=== PATIENT | male | born 1950 | race Caucasian/White ===

== ENCOUNTER 2018-06-02 16:17 | Inpatient (IN) ==
[2018-06-02] MEDS ORDERED: CLINDAMYCIN INJ 900 MG in PREMIX 1 EACH IV STA (17:23)
[2018-06-02] MEDS ORDERED: methylPREDNISolone SOD SUC 125 MG/2 ML VIAL IV STA (17:23)
[2018-06-02] MEDS ORDERED: SULFAMETHOX/TRIMETHOPRIM 800-160 MG TABLET PO STA (17:25)
[2018-06-02 18:05] LABS: Basophils % 0.5 % (0.0-0.8); Eosinophils # 0.1 10*3/uL (0.0-0.87); Eosinophils % 1.7 % (0.00-10.9); Hematocrit 32.7 VOL% (42.0-52.0); Immature Granulocytes % 0.5 %; Immature Granulocytes Absolute 0.03 #; Lymphocytes # 0.7 10*3/uL (1.4-4.0); Lymphocytes % 11.6 % (21.2-54.2); Mean Corpuscular HGB Conc 33.6 GM/DL (32-36); Mean Corpuscular Hemoglobin 35 PG (27-34); Mean Corpuscular Volume 104.5 FL (87-102); Monocytes # 0.6 10*3/uL (0.11-0.8); Monocytes % 10.4 % (1.7-12.7); Neutrophils # 4.4 10*3/uL (1.4-7.4); Neutrophils % 75.3 % (38.7-73.9); Platelet Count 196 T/CUMM (130-400); Red Blood Count 3.13 MC/CUMM (3.8-5.5); Red Cell Distribution Width 13.2 % (9.3-17.3); White Blood Count 5.9 T/CUMM (4-12)
[2018-06-02 18:28] LABS: Alanine Aminotransferase 23 U/L (16-61); Alkaline Phosphatase 83 U/L (45-117); Aspartate Amino Transferase 27 U/L (0-37); Bilirubin,Total < 0.39 MG/DL (0.2-1.0); Blood Urea Nitrogen 19 MG/DL (7-18); Calcium 8.8 MG/DL (8.5-10.1); Glucose 86 MG/DL (74-106); Potassium 5.4 MMOL/L (3.5-5.1); Sodium 136 MMOL/L (136-145); Total Protein 6.6 G/DL (6.4-8.3)
[2018-06-02 18:34] LABS: INR 0.9; PT Patient Result 9.5 SECS
[2018-06-02 19:23] LABS: Sedimentation Rate-Westergren 66 MM/HR (0-20)
[2018-06-02] MEDS ORDERED: ONDANSETRON 4 MG/2 ML VIAL IV PRN (19:33)
[2018-06-02] MEDS ORDERED: ACETAMINOPHEN 325 MG TABLET PO PRN (19:33)
[2018-06-02] MEDS ORDERED: PERMETHRIN 5% CREAM 60 GM TUBE TOP SCH (21:00)
[2018-06-02 21:05] LABS: Folate 7.5 NG/ML (5.4-24.0); Vitamin B12 > 2000 PG/ML (211-911)
[2018-06-02] MEDS: ENOXAPARIN 40 MG/0.4 ML SYRINGE SUBCUT SCH (21:48)
[2018-06-02] MEDS ORDERED: INFLUENZA VIRUS VACCINE 0.5 ML SYRINGE IM ONE (22:32)
[2018-06-03] MEDS: CLINDAMYCIN INJ 900 MG in PREMIX 1 EACH IV SCH ×3 (02:09→17:10)
[2018-06-03 06:28] LABS: Basophils % 0.3 % (0.0-0.8); Eosinophils % 0.3 % (0.00-10.9); Hematocrit 31.7 VOL% (42.0-52.0); Hemoglobin 10.4 GM/DL (14.0-18.0); Immature Granulocytes % 0.3 %; Immature Granulocytes Absolute 0.01 #; Lymphocytes # 0.6 10*3/uL (1.4-4.0); Lymphocytes % 14.7 % (21.2-54.2); Mean Corpuscular HGB Conc 32.8 GM/DL (32-36); Mean Corpuscular Hemoglobin 35 PG (27-34); Mean Corpuscular Volume 105.3 FL (87-102); Mean Platelet Volume 9.6 FL (9.6-12.0); Monocytes # 0.5 10*3/uL (0.11-0.8); Monocytes % 12.6 % (1.7-12.7); Neutrophils # 2.8 10*3/uL (1.4-7.4); Neutrophils % 71.8 % (38.7-73.9); Platelet Count 208 T/CUMM (130-400); Red Blood Count 3.01 MC/CUMM (3.8-5.5); Red Cell Distribution Width 13.2 % (9.3-17.3); White Blood Count 3.9 T/CUMM (4-12)
[2018-06-03 06:50] LABS: Calcium 8.5 MG/DL (8.5-10.1); Osmolality,Calculated 278.5 MOS/KG (273-304); Potassium 4.8 MMOL/L (3.5-5.1); Thyroid Stimulating Hormone 1.83 uIU/ml (0.358-3.74)
[2018-06-03] MEDS ORDERED: chlordiazePOXIDE 10 MG CAPSULE PO PRN (09:30)
[2018-06-03] MEDS ORDERED: MELATONIN 3 MG TABLET PO SCH (09:30)
[2018-06-03] MEDS: NICOTINE 14 MG/24 HR PATCH TRANSDERM SCH (09:59)
[2018-06-03] MEDS: THIAMINE 200 MG/2 ML VIAL IV SCH (09:59)
[2018-06-03] MEDS: POTASSIUM CHLORIDE 20 MEQ TABLET PO SCH (10:08)
[2018-06-03] MEDS: ASPIRIN EC 81 MG TABLET PO SCH (10:08)
[2018-06-03] MEDS: LISINOPRIL/HCTZ 20-12.5 MG TABLET PO SCH (10:08)
[2018-06-03] MEDS: OMEGA 3 ACID ETHYL ESTERS 1 GM CAPSULE PO SCH ×2 (10:08→20:46)
[2018-06-03] MEDS: MULTIVITAMIN (CENTRUM) TABLET PO SCH (10:08)
[2018-06-03] MEDS: amLODIPine 10 MG TABLET PO SCH (10:10)
[2018-06-03] MEDS ORDERED: SKIN HEALING OINT (AQUAPHOR) 50 GM TUBE TOP PRN (11:37)
[2018-06-03] MEDS: ENOXAPARIN 40 MG/0.4 ML SYRINGE SUBCUT SCH (20:45)
[2018-06-03] MEDS: SENNA 8.6 MG TABLET PO SCH (20:47)
[2018-06-03] MEDS: CYANOCOBALAMIN 500 MCG TABLET PO SCH (20:49)
[2018-06-03] MEDS ORDERED: DOCUSATE CALCIUM 240 MG CAPSULE PO SCH (21:00)
[2018-06-04] MEDS: CLINDAMYCIN INJ 900 MG in PREMIX 1 EACH IV SCH ×4 (02:02→18:02)
[2018-06-04 05:42] LABS: Basophils % 0.7 % (0.0-0.8); Eosinophils # 0.3 10*3/uL (0.0-0.87); Eosinophils % 7.3 % (0.00-10.9); Hematocrit 28.6 VOL% (42.0-52.0); Hemoglobin 9.3 GM/DL (14.0-18.0); Immature Granulocytes % 0.2 %; Immature Granulocytes Absolute 0.01 #; Lymphocytes # 0.9 10*3/uL (1.4-4.0); Lymphocytes % 21.1 % (21.2-54.2); Mean Corpuscular HGB Conc 32.5 GM/DL (32-36); Mean Corpuscular Hemoglobin 35 PG (27-34); Mean Corpuscular Volume 107.5 FL (87-102); Mean Platelet Volume 9.6 FL (9.6-12.0); Monocytes # 0.5 10*3/uL (0.11-0.8); Monocytes % 11.9 % (1.7-12.7); Neutrophils # 2.6 10*3/uL (1.4-7.4); Neutrophils % 58.8 % (38.7-73.9); Platelet Count 171 T/CUMM (130-400); Red Blood Count 2.66 MC/CUMM (3.8-5.5); Red Cell Distribution Width 13.1 % (9.3-17.3); White Blood Count 4.4 T/CUMM (4-12)
[2018-06-04 06:09] LABS: Calcium 8.1 MG/DL (8.5-10.1); Osmolality,Calculated 277.5 MOS/KG (273-304); Potassium 4.3 MMOL/L (3.5-5.1)
[2018-06-04] MEDS: THIAMINE 200 MG/2 ML VIAL IV SCH (08:38)
[2018-06-04] MEDS: NICOTINE 14 MG/24 HR PATCH TRANSDERM SCH (08:38)
[2018-06-04] MEDS: OMEGA 3 ACID ETHYL ESTERS 1 GM CAPSULE PO SCH ×2 (08:39→21:03)
[2018-06-04] MEDS: POTASSIUM CHLORIDE 20 MEQ TABLET PO SCH (08:39)
[2018-06-04] MEDS: LISINOPRIL/HCTZ 20-12.5 MG TABLET PO SCH (08:39)
[2018-06-04] MEDS: MULTIVITAMIN (CENTRUM) TABLET PO SCH (08:39)
[2018-06-04] MEDS: amLODIPine 10 MG TABLET PO SCH (08:39)
[2018-06-04] MEDS: ASPIRIN EC 81 MG TABLET PO SCH (08:39)
[2018-06-04] MEDS: PANTOPRAZOLE 40 MG TABLET PO SCH (10:39)
[2018-06-04] MEDS: CYANOCOBALAMIN 500 MCG TABLET PO SCH (21:03)
[2018-06-04] MEDS: SENNA 8.6 MG TABLET PO SCH (21:03)
[2018-06-04] MEDS: DOCUSATE SODIUM 100 MG CAPSULE PO SCH (21:03)
[2018-06-04] MEDS: ENOXAPARIN 40 MG/0.4 ML SYRINGE SUBCUT SCH (21:04)
[2018-06-05] MEDS: CLINDAMYCIN INJ 900 MG in PREMIX 1 EACH IV SCH ×4 (01:17→19:01)
[2018-06-05 05:29] LABS: Basophils % 0.2 % (0.0-0.8); Eosinophils # 0.3 10*3/uL (0.0-0.87); Eosinophils % 7.3 % (0.00-10.9); Hematocrit 29.9 VOL% (42.0-52.0); Hemoglobin 9.7 GM/DL (14.0-18.0); Immature Granulocytes % 0.2 %; Immature Granulocytes Absolute 0.01 #; Lymphocytes # 1.1 10*3/uL (1.4-4.0); Lymphocytes % 24.7 % (21.2-54.2); Mean Corpuscular HGB Conc 32.4 GM/DL (32-36); Mean Corpuscular Hemoglobin 34 PG (27-34); Mean Corpuscular Volume 104.9 FL (87-102); Mean Platelet Volume 9.3 FL (9.6-12.0); Monocytes # 0.5 10*3/uL (0.11-0.8); Monocytes % 10.7 % (1.7-12.7); Neutrophils # 2.6 10*3/uL (1.4-7.4); Neutrophils % 56.9 % (38.7-73.9); Platelet Count 156 T/CUMM (130-400); Red Blood Count 2.85 MC/CUMM (3.8-5.5); Red Cell Distribution Width 12.7 % (9.3-17.3); White Blood Count 4.5 T/CUMM (4-12)
[2018-06-05 05:53] LABS: Calcium 7.9 MG/DL (8.5-10.1); Osmolality,Calculated 276.5 MOS/KG (273-304); Potassium 3.9 MMOL/L (3.5-5.1)
[2018-06-05 05:55] LABS: Alanine Aminotransferase 19 U/L (16-61); Albumin 2.2 G/DL (3.4-5.0); Alkaline Phosphatase 54 U/L (45-117); Aspartate Amino Transferase 22 U/L (0-37); Bilirubin,Direct < 0.100 MG/DL (0.0-0.20); Bilirubin,Indirect 0.3 MG/DL (0.0-1.0); Bilirubin,Total < 0.39 MG/DL (0.2-1.0); Total Protein 5.2 G/DL (6.4-8.3)
[2018-06-05 07:58] LABS: Hepatitis A Ab IgM Quant 0.08 Index; Hepatitis A Ab IgM Result Negative (Negative); Hepatitis B Core IgM Quant < 0.05 Index; Hepatitis B Core IgM Result Negative (Negative); Hepatitis B Surface Ag Quant < 0.10 Index; Hepatitis B Surface Ag Result Negative (Negative); Hepatitis C Virus Ab Quant 0.06 Index; Hepatitis C Virus Ab Result Negative (Negative)
[2018-06-05] MEDS: NICOTINE 14 MG/24 HR PATCH TRANSDERM SCH (09:33)
[2018-06-05] MEDS: amLODIPine 10 MG TABLET PO SCH (09:34)
[2018-06-05] MEDS: MULTIVITAMIN (CENTRUM) TABLET PO SCH (09:34)
[2018-06-05] MEDS: PANTOPRAZOLE 40 MG TABLET PO SCH (09:34)
[2018-06-05] MEDS: LISINOPRIL/HCTZ 20-12.5 MG TABLET PO SCH (09:34)
[2018-06-05] MEDS: THIAMINE 200 MG/2 ML VIAL IV SCH (09:34)
[2018-06-05] MEDS: POTASSIUM CHLORIDE 20 MEQ TABLET PO SCH (09:34)
[2018-06-05] MEDS: OMEGA 3 ACID ETHYL ESTERS 1 GM CAPSULE PO SCH ×2 (09:34→21:10)
[2018-06-05] MEDS: ASPIRIN EC 81 MG TABLET PO SCH (09:34)
[2018-06-05] MEDS ORDERED: CYANOCOBALAMIN 1000 MCG/1 ML VIAL IM SCH (12:00)
[2018-06-05] MEDS: hydrOXYzine HCL 10 MG TABLET PO SCH ×2 (14:14→21:10)
[2018-06-05] MEDS: ENOXAPARIN 40 MG/0.4 ML SYRINGE SUBCUT SCH (21:10)
[2018-06-05] MEDS: MELATONIN 3 MG TABLET PO SCH (21:10)
[2018-06-05] MEDS: SENNA 8.6 MG TABLET PO SCH (21:11)
[2018-06-05] MEDS: DOCUSATE SODIUM 100 MG CAPSULE PO SCH (21:11)
[2018-06-06] MEDS: CLINDAMYCIN INJ 900 MG in PREMIX 1 EACH IV SCH ×3 (02:38→17:23)
[2018-06-06] MEDS: PANTOPRAZOLE 40 MG TABLET PO SCH (08:31)
[2018-06-06] MEDS: hydrOXYzine HCL 10 MG TABLET PO SCH ×3 (08:31→20:19)
[2018-06-06] MEDS: OMEGA 3 ACID ETHYL ESTERS 1 GM CAPSULE PO SCH ×2 (08:31→20:19)
[2018-06-06] MEDS: MULTIVITAMIN (CENTRUM) TABLET PO SCH (08:31)
[2018-06-06] MEDS: NICOTINE 14 MG/24 HR PATCH TRANSDERM SCH (08:31)
[2018-06-06] MEDS: ASPIRIN EC 81 MG TABLET PO SCH (08:31)
[2018-06-06] MEDS: amLODIPine 10 MG TABLET PO SCH (08:31)
[2018-06-06] MEDS: POTASSIUM CHLORIDE 20 MEQ TABLET PO SCH (08:31)
[2018-06-06] MEDS: SENNA 8.6 MG TABLET PO SCH (20:18)
[2018-06-06] MEDS: ENOXAPARIN 40 MG/0.4 ML SYRINGE SUBCUT SCH (20:18)
[2018-06-06] MEDS: DOCUSATE SODIUM 100 MG CAPSULE PO SCH (20:18)
[2018-06-07] MEDS: CLINDAMYCIN INJ 900 MG in PREMIX 1 EACH IV SCH ×3 (02:56→18:06)
[2018-06-07] MEDS: OMEGA 3 ACID ETHYL ESTERS 1 GM CAPSULE PO SCH ×2 (09:23→22:14)
[2018-06-07] MEDS: PANTOPRAZOLE 40 MG TABLET PO SCH (09:23)
[2018-06-07] MEDS: ASPIRIN EC 81 MG TABLET PO SCH (09:23)
[2018-06-07] MEDS: POTASSIUM CHLORIDE 20 MEQ TABLET PO SCH (09:23)
[2018-06-07] MEDS: hydrOXYzine HCL 10 MG TABLET PO SCH (09:23)
[2018-06-07] MEDS: MULTIVITAMIN (CENTRUM) TABLET PO SCH (09:23)
[2018-06-07] MEDS: amLODIPine 10 MG TABLET PO SCH (09:23)
[2018-06-07] MEDS: NICOTINE 14 MG/24 HR PATCH TRANSDERM SCH (09:23)
[2018-06-07] MEDS ORDERED: TUBERCULIN SKIN TEST 0.1 ML SYRINGE INTRADERM ONE (11:31)
[2018-06-07] MEDS: hydrOXYzine HCL 25 MG TABLET PO SCH ×2 (15:12→22:14)
[2018-06-07] MEDS: MELATONIN 3 MG TABLET PO SCH (22:14)
[2018-06-07] MEDS: ENOXAPARIN 40 MG/0.4 ML SYRINGE SUBCUT SCH (22:14)
[2018-06-07] MEDS: DOCUSATE SODIUM 100 MG CAPSULE PO SCH (22:14)
[2018-06-07] MEDS: SENNA 8.6 MG TABLET PO SCH (22:14)
[2018-06-08] MEDS: CLINDAMYCIN INJ 900 MG in PREMIX 1 EACH IV SCH ×2 (03:07→10:01)
[2018-06-08] MEDS: POTASSIUM CHLORIDE 20 MEQ TABLET PO SCH (10:00)
[2018-06-08] MEDS: amLODIPine 10 MG TABLET PO SCH (10:00)
[2018-06-08] MEDS: OMEGA 3 ACID ETHYL ESTERS 1 GM CAPSULE PO SCH (10:00)
[2018-06-08] MEDS: MULTIVITAMIN (CENTRUM) TABLET PO SCH (10:00)
[2018-06-08] MEDS: PANTOPRAZOLE 40 MG TABLET PO SCH (10:00)
[2018-06-08] MEDS: hydrOXYzine HCL 25 MG TABLET PO SCH (10:00)
[2018-06-08] MEDS: ASPIRIN EC 81 MG TABLET PO SCH (10:00)
[2018-06-08] MEDS: NICOTINE 14 MG/24 HR PATCH TRANSDERM SCH (10:00)
[2018-06-08 12:58] VITALS: BP 108/66
== END 2018-06-08 15:41 | DRG 301 ==
LOC: N.ED 16:17 → N.EDINP 16:17 → N.5E 20:30 → SUATTDRO 06-03 14:09
PROVIDERS: ADMIT Internal Medicine; ATTEND Internal Medicine

== ENCOUNTER 2018-06-23 09:39 | Inpatient (IN) ==
[2018-06-23] MEDS ORDERED: DOCUSATE SODIUM 100 MG CAPSULE PO PRN (09:49)
[2018-06-23] MEDS ORDERED: ONDANSETRON 4 MG/2 ML VIAL IV PRN (09:49)
[2018-06-23] MEDS ORDERED: ACETAMINOPHEN 325 MG TABLET PO PRN (09:49)
[2018-06-23 11:41] LABS: Basophils % 0.4 % (0.0-0.8); Eosinophils # 0.4 10*3/uL (0.0-0.87); Eosinophils % 5.1 % (0.00-10.9); Hematocrit 28.8 VOL% (42.0-52.0); Hemoglobin 9.1 GM/DL (14.0-18.0); Immature Granulocytes % 0.5 %; Immature Granulocytes Absolute 0.04 #; Lymphocytes # 1.8 10*3/uL (1.4-4.0); Lymphocytes % 22.3 % (21.2-54.2); Mean Corpuscular HGB Conc 31.6 GM/DL (32-36); Mean Corpuscular Hemoglobin 32 PG (27-34); Mean Corpuscular Volume 101.8 FL (87-102); Mean Platelet Volume 9.1 FL (9.6-12.0); Monocytes % 13.2 % (1.7-12.7); Neutrophils # 4.6 10*3/uL (1.4-7.4); Neutrophils % 58.5 % (38.7-73.9); Platelet Count 239 T/CUMM (130-400); Red Blood Count 2.83 MC/CUMM (3.8-5.5); Red Cell Distribution Width 13.2 % (9.3-17.3); White Blood Count 7.9 T/CUMM (4-12)
[2018-06-23 12:01] LABS: Alanine Aminotransferase 25 U/L (16-61); Albumin 2.6 G/DL (3.4-5.0); Alkaline Phosphatase 107 U/L (45-117); Aspartate Amino Transferase 19 U/L (0-37); Bilirubin,Total < 0.39 MG/DL (0.2-1.0); Blood Urea Nitrogen 17 MG/DL (7-18); Calcium 8.8 MG/DL (8.5-10.1); Glucose 118 MG/DL (74-106); Potassium 3.7 MMOL/L (3.5-5.1); Sodium 143 MMOL/L (136-145); Total Protein 6.2 G/DL (6.4-8.3)
[2018-06-23] MEDS ORDERED: SKIN HEALING OINT (AQUAPHOR) 50 GM TUBE TOP PRN ×2 (12:06→19:46)
[2018-06-23] MEDS: SODIUM CHLORIDE 0.9% 1,000 ML IV SCH (12:07)
[2018-06-23 18:37] LABS: Apearance,Urine CLEAR (Clear); Bilirubin,Urine Negative (Negative); Blood, Urine Negative (Negative); Glucose,Urine (UA) Negative (Negative); Ketones,Urine Negative (Negative); Mucus,Urine Occasional /LPF (Occasional); Nitrite,Urine Negative (Negative); Protein,Urine Negative; RBC,Urine 8 /HPF (0-4); Urine Color Yellow (Yellow); Urine Urobilinogen < 2.0 EU/DL (0.2-1.0); WBC,Urine 6 /HPF (0-6)
[2018-06-23] MEDS ORDERED: methylPREDNISolone SOD SUC 40 MG/1 ML VIAL IV SCH (21:00)
[2018-06-23] MEDS: hydrOXYzine HCL 25 MG TABLET PO SCH (21:50)
[2018-06-23] MEDS: DOCUSATE SODIUM 100 MG CAPSULE PO SCH (21:50)
[2018-06-23] MEDS: OMEGA 3 ACID ETHYL ESTERS 1 GM CAPSULE PO SCH (21:50)
[2018-06-23] MEDS: ceFAZolin 1,000 MG in SYRINGE 1 EACH IV SCH (21:54)
[2018-06-23] MEDS: ENOXAPARIN 30 MG/0.3 ML SYRINGE SUBCUT SCH (21:58)
[2018-06-24] MEDS: SODIUM CHLORIDE 0.9% 1,000 ML IV SCH (06:22)
[2018-06-24] MEDS: ceFAZolin 1,000 MG in SYRINGE 1 EACH IV SCH ×3 (06:38→22:10)
[2018-06-24] MEDS: NICOTINE 14 MG/24 HR PATCH TRANSDERM SCH (10:04)
[2018-06-24] MEDS: hydrOXYzine HCL 25 MG TABLET PO SCH ×3 (10:05→22:01)
[2018-06-24] MEDS: OMEGA 3 ACID ETHYL ESTERS 1 GM CAPSULE PO SCH ×2 (10:06→22:00)
[2018-06-24] MEDS: ASPIRIN EC 81 MG TABLET PO SCH (10:06)
[2018-06-24] MEDS: PANTOPRAZOLE 40 MG TABLET PO SCH (10:06)
[2018-06-24] MEDS: methylPREDNISolone SOD SUC 125 MG/2 ML VIAL IV SCH ×2 (11:34→22:03)
[2018-06-24] MEDS: ENOXAPARIN 30 MG/0.3 ML SYRINGE SUBCUT SCH (21:59)
[2018-06-24] MEDS: DOCUSATE SODIUM 100 MG CAPSULE PO SCH (22:00)
[2018-06-24] MEDS: SENNA 8.6 MG TABLET PO SCH ×2 (22:00→22:03)
[2018-06-24] MEDS: LOSARTAN 50 MG TABLET PO SCH (22:02)
[2018-06-25] MEDS: SODIUM CHLORIDE 0.9% 1,000 ML IV SCH (06:15)
[2018-06-25] MEDS: ceFAZolin 1,000 MG in SYRINGE 1 EACH IV SCH ×3 (06:20→21:41)
[2018-06-25] MEDS: hydrOXYzine HCL 25 MG TABLET PO SCH ×3 (08:55→21:42)
[2018-06-25] MEDS: OMEGA 3 ACID ETHYL ESTERS 1 GM CAPSULE PO SCH ×2 (08:55→21:42)
[2018-06-25] MEDS: methylPREDNISolone SOD SUC 125 MG/2 ML VIAL IV SCH ×2 (08:56→21:42)
[2018-06-25] MEDS: NICOTINE 14 MG/24 HR PATCH TRANSDERM SCH (08:56)
[2018-06-25] MEDS: ASPIRIN EC 81 MG TABLET PO SCH (08:56)
[2018-06-25] MEDS: LOSARTAN 50 MG TABLET PO SCH ×2 (08:56→21:42)
[2018-06-25] MEDS: PANTOPRAZOLE 40 MG TABLET PO SCH (08:57)
[2018-06-25 09:30] LABS: Basophils % 0.2 % (0.0-0.8); Eosinophils % 0.1 % (0.00-10.9); Hematocrit 30.8 VOL% (42.0-52.0); Hemoglobin 9.7 GM/DL (14.0-18.0); Immature Granulocytes % 0.6 %; Immature Granulocytes Absolute 0.07 #; Lymphocytes # 2.3 10*3/uL (1.4-4.0); Lymphocytes % 21.6 % (21.2-54.2); Mean Corpuscular HGB Conc 31.5 GM/DL (32-36); Mean Corpuscular Hemoglobin 32 PG (27-34); Mean Platelet Volume 9.5 FL (9.6-12.0); Monocytes % 8.9 % (1.7-12.7); NRBC # 0.02 10*3/uL; Neutrophils # 7.4 10*3/uL (1.4-7.4); Neutrophils % 68.6 % (38.7-73.9); Platelet Count 278 T/CUMM (130-400); Red Blood Count 3.02 MC/CUMM (3.8-5.5); Red Cell Distribution Width 13.2 % (9.3-17.3); White Blood Count 10.8 T/CUMM (4-12)
[2018-06-25 09:48] LABS: Calcium 8.5 MG/DL (8.5-10.1); Osmolality,Calculated 291.7 MOS/KG (273-304)
[2018-06-25 10:24] LABS: Alanine Aminotransferase 54 U/L (16-61); Albumin 2.6 G/DL (3.4-5.0); Alkaline Phosphatase 111 U/L (45-117); Aspartate Amino Transferase 43 U/L (0-37); Bilirubin,Total < 0.39 MG/DL (0.2-1.0); Blood Urea Nitrogen 18 MG/DL (7-18); Calcium 8.4 MG/DL (8.5-10.1); Glucose 133 MG/DL (74-106); Osmolality,Calculated 293.6 MOS/KG (273-304); Sodium 146 MMOL/L (136-145); Total Protein 6.5 G/DL (6.4-8.3)
[2018-06-25] MEDS ORDERED: FUROSEMIDE 20 MG/2 ML VIAL IV ONE (10:44)
[2018-06-25] MEDS: ALBUTEROL/IPRATROPIUM 3 ML NEB RESP TX SCH ×2 (12:33→19:18)
[2018-06-25] MEDS: SENNA 8.6 MG TABLET PO SCH (21:41)
[2018-06-25] MEDS: CLORAZEPATE 3.75 MG TABLET PO SCH (21:42)
[2018-06-25] MEDS: ENOXAPARIN 40 MG/0.4 ML SYRINGE SUBCUT SCH (21:42)
[2018-06-25] MEDS: DOCUSATE SODIUM 100 MG CAPSULE PO SCH (21:42)
[2018-06-26] MEDS: ALBUTEROL/IPRATROPIUM 3 ML NEB RESP TX SCH ×4 (00:18→19:54)
[2018-06-26] MEDS: ceFAZolin 1,000 MG in SYRINGE 1 EACH IV SCH ×3 (05:35→21:37)
[2018-06-26] MEDS: methylPREDNISolone SOD SUC 125 MG/2 ML VIAL IV SCH ×2 (09:17→21:34)
[2018-06-26] MEDS: CLORAZEPATE 3.75 MG TABLET PO SCH ×2 (09:18→21:32)
[2018-06-26] MEDS: OMEGA 3 ACID ETHYL ESTERS 1 GM CAPSULE PO SCH ×2 (09:18→21:32)
[2018-06-26] MEDS: hydrOXYzine HCL 25 MG TABLET PO SCH ×3 (09:18→21:32)
[2018-06-26] MEDS: PANTOPRAZOLE 40 MG TABLET PO SCH (09:18)
[2018-06-26] MEDS: ASPIRIN EC 81 MG TABLET PO SCH (09:18)
[2018-06-26] MEDS: LOSARTAN 50 MG TABLET PO SCH ×2 (09:18→21:34)
[2018-06-26] MEDS: NICOTINE 14 MG/24 HR PATCH TRANSDERM SCH (09:18)
[2018-06-26] MEDS: DOCUSATE SODIUM 100 MG CAPSULE PO SCH (21:32)
[2018-06-26] MEDS: SENNA 8.6 MG TABLET PO SCH (21:32)
[2018-06-26] MEDS: SODIUM CHLORIDE 0.9% 1,000 ML IV SCH (21:35)
[2018-06-26] MEDS: ENOXAPARIN 40 MG/0.4 ML SYRINGE SUBCUT SCH (21:37)
[2018-06-27] MEDS: ALBUTEROL/IPRATROPIUM 3 ML NEB RESP TX SCH ×4 (00:10→19:53)
[2018-06-27 05:24] LABS: Hematocrit 27.2 VOL% (42.0-52.0); Hemoglobin 8.4 GM/DL (14.0-18.0); Immature Granulocytes % 0.5 %; Immature Granulocytes Absolute 0.04 #; Lymphocytes # 1.6 10*3/uL (1.4-4.0); Lymphocytes % 19.1 % (21.2-54.2); Mean Corpuscular HGB Conc 30.9 GM/DL (32-36); Mean Corpuscular Hemoglobin 31 PG (27-34); Mean Corpuscular Volume 101.5 FL (87-102); Mean Platelet Volume 9.4 FL (9.6-12.0); Monocytes # 0.5 10*3/uL (0.11-0.8); Monocytes % 5.8 % (1.7-12.7); Neutrophils # 6.4 10*3/uL (1.4-7.4); Neutrophils % 74.6 % (38.7-73.9); Platelet Count 239 T/CUMM (130-400); Red Blood Count 2.68 MC/CUMM (3.8-5.5); Red Cell Distribution Width 13.4 % (9.3-17.3); White Blood Count 8.6 T/CUMM (4-12)
[2018-06-27] MEDS: ceFAZolin 1,000 MG in SYRINGE 1 EACH IV SCH (05:44)
[2018-06-27 05:46] LABS: Calcium 8.2 MG/DL (8.5-10.1); Potassium 3.9 MMOL/L (3.5-5.1)
[2018-06-27] MEDS: methylPREDNISolone SOD SUC 125 MG/2 ML VIAL IV SCH ×2 (10:14→21:45)
[2018-06-27] MEDS: CLORAZEPATE 3.75 MG TABLET PO SCH ×2 (10:15→21:45)
[2018-06-27] MEDS: NICOTINE 14 MG/24 HR PATCH TRANSDERM SCH (10:15)
[2018-06-27] MEDS: OMEGA 3 ACID ETHYL ESTERS 1 GM CAPSULE PO SCH ×2 (10:15→21:45)
[2018-06-27] MEDS: PANTOPRAZOLE 40 MG TABLET PO SCH (10:16)
[2018-06-27] MEDS: hydrOXYzine HCL 25 MG TABLET PO SCH ×3 (10:16→21:44)
[2018-06-27] MEDS: LOSARTAN 50 MG TABLET PO SCH ×2 (10:16→21:45)
[2018-06-27] MEDS: ASPIRIN EC 81 MG TABLET PO SCH (10:16)
[2018-06-27] MEDS ORDERED: AZITHROMYCIN 250 MG TABLET PO ONE (11:03)
[2018-06-27] MEDS ORDERED: DEXTROMETHORPHAN ER 6 MG/ML 90 ML/BOTTLE PO PRN (11:05)
[2018-06-27] MEDS ORDERED: BENZONATATE 100 MG CAPSULE PO PRN (11:05)
[2018-06-27] MEDS ORDERED: FUROSEMIDE 20 MG/2 ML VIAL IV ONE (11:05)
[2018-06-27] MEDS: SODIUM CHLORIDE 0.9% 1,000 ML IV SCH (15:12)
[2018-06-27] MEDS: cefTRIAXone 1,000 MG in SYRINGE 1 EACH IV SCH (15:19)
[2018-06-27] MEDS: SENNA 8.6 MG TABLET PO SCH (21:44)
[2018-06-27] MEDS: DOCUSATE SODIUM 100 MG CAPSULE PO SCH (21:45)
[2018-06-27] MEDS: ENOXAPARIN 40 MG/0.4 ML SYRINGE SUBCUT SCH (21:47)
[2018-06-28] MEDS: ALBUTEROL/IPRATROPIUM 3 ML NEB RESP TX SCH ×4 (01:39→19:23)
[2018-06-28] MEDS: CLORAZEPATE 3.75 MG TABLET PO SCH ×2 (09:42→21:21)
[2018-06-28] MEDS: LOSARTAN 50 MG TABLET PO SCH ×2 (09:42→21:21)
[2018-06-28] MEDS: methylPREDNISolone SOD SUC 125 MG/2 ML VIAL IV SCH ×2 (09:42→21:21)
[2018-06-28] MEDS: AZITHROMYCIN 250 MG TABLET PO SCH (09:42)
[2018-06-28] MEDS: ASPIRIN EC 81 MG TABLET PO SCH (09:42)
[2018-06-28] MEDS: PANTOPRAZOLE 40 MG TABLET PO SCH (09:42)
[2018-06-28] MEDS: hydrOXYzine HCL 25 MG TABLET PO SCH ×3 (09:42→21:21)
[2018-06-28] MEDS: OMEGA 3 ACID ETHYL ESTERS 1 GM CAPSULE PO SCH ×2 (09:42→21:21)
[2018-06-28] MEDS: NICOTINE 14 MG/24 HR PATCH TRANSDERM SCH (13:05)
[2018-06-28] MEDS ORDERED: FUROSEMIDE 40 MG/4 ML VIAL IV ONE (13:36)
[2018-06-28] MEDS: cefTRIAXone 1,000 MG in SYRINGE 1 EACH IV SCH (14:26)
[2018-06-28] MEDS: SENNA 8.6 MG TABLET PO SCH (21:21)
[2018-06-28] MEDS: ENOXAPARIN 40 MG/0.4 ML SYRINGE SUBCUT SCH (21:21)
[2018-06-28] MEDS: DOCUSATE SODIUM 100 MG CAPSULE PO SCH (21:21)
[2018-06-28] MEDS: SODIUM CHLORIDE 0.9% 1,000 ML IV SCH (23:20)
[2018-06-29] MEDS: ALBUTEROL/IPRATROPIUM 3 ML NEB RESP TX SCH ×4 (01:28→19:31)
[2018-06-29] MEDS: SODIUM CHLORIDE 0.9% 1,000 ML IV SCH (05:20)
[2018-06-29 06:16] LABS: Basophils % 0.1 % (0.0-0.8); Eosinophils % 0.2 % (0.00-10.9); Hemoglobin 9.4 GM/DL (14.0-18.0); Immature Granulocytes % 0.5 %; Immature Granulocytes Absolute 0.04 #; Lymphocytes % 23.3 % (21.2-54.2); Mean Corpuscular HGB Conc 31.3 GM/DL (32-36); Mean Corpuscular Hemoglobin 31 PG (27-34); Mean Corpuscular Volume 99.7 FL (87-102); Mean Platelet Volume 9.7 FL (9.6-12.0); Monocytes # 0.8 10*3/uL (0.11-0.8); Monocytes % 8.9 % (1.7-12.7); Neutrophils # 5.8 10*3/uL (1.4-7.4); Platelet Count 295 T/CUMM (130-400); Red Blood Count 3.01 MC/CUMM (3.8-5.5); Red Cell Distribution Width 13.6 % (9.3-17.3); White Blood Count 8.6 T/CUMM (4-12)
[2018-06-29 06:36] LABS: Calcium 8.4 MG/DL (8.5-10.1); Osmolality,Calculated 286.8 MOS/KG (273-304); Potassium 3.3 MMOL/L (3.5-5.1)
[2018-06-29] MEDS: hydrOXYzine HCL 25 MG TABLET PO SCH ×3 (08:51→22:29)
[2018-06-29] MEDS: CLORAZEPATE 3.75 MG TABLET PO SCH ×2 (08:51→22:28)
[2018-06-29] MEDS: ASPIRIN EC 81 MG TABLET PO SCH (08:51)
[2018-06-29] MEDS: PANTOPRAZOLE 40 MG TABLET PO SCH (08:51)
[2018-06-29] MEDS: OMEGA 3 ACID ETHYL ESTERS 1 GM CAPSULE PO SCH ×2 (08:51→22:29)
[2018-06-29] MEDS: LOSARTAN 50 MG TABLET PO SCH ×2 (08:51→22:29)
[2018-06-29] MEDS: AZITHROMYCIN 250 MG TABLET PO SCH (08:51)
[2018-06-29] MEDS: methylPREDNISolone SOD SUC 125 MG/2 ML VIAL IV SCH ×2 (08:51→22:29)
[2018-06-29] MEDS: NICOTINE 14 MG/24 HR PATCH TRANSDERM SCH (08:52)
[2018-06-29] MEDS ORDERED: POTASSIUM CHLORIDE 20 MEQ TABLET PO ONE (10:44)
[2018-06-29] MEDS: cefTRIAXone 1,000 MG in SYRINGE 1 EACH IV SCH (12:31)
[2018-06-29] MEDS: DOCUSATE SODIUM 100 MG CAPSULE PO SCH (22:29)
[2018-06-29] MEDS: SENNA 8.6 MG TABLET PO SCH (22:29)
[2018-06-29] MEDS: ENOXAPARIN 40 MG/0.4 ML SYRINGE SUBCUT SCH (22:31)
[2018-06-30] MEDS: ALBUTEROL/IPRATROPIUM 3 ML NEB RESP TX SCH ×3 (00:37→13:24)
[2018-06-30] MEDS ORDERED: POTASSIUM CHLORIDE 20 MEQ TABLET PO ONE (08:55)
[2018-06-30] MEDS: CLORAZEPATE 3.75 MG TABLET PO SCH (08:57)
[2018-06-30] MEDS: PANTOPRAZOLE 40 MG TABLET PO SCH (08:57)
[2018-06-30] MEDS: LOSARTAN 50 MG TABLET PO SCH (08:57)
[2018-06-30] MEDS: hydrOXYzine HCL 25 MG TABLET PO SCH (08:57)
[2018-06-30] MEDS: AZITHROMYCIN 250 MG TABLET PO SCH (08:57)
[2018-06-30] MEDS: ASPIRIN EC 81 MG TABLET PO SCH (08:58)
[2018-06-30] MEDS: NICOTINE 14 MG/24 HR PATCH TRANSDERM SCH (08:58)
[2018-06-30] MEDS: methylPREDNISolone SOD SUC 125 MG/2 ML VIAL IV SCH (08:58)
[2018-06-30] MEDS: OMEGA 3 ACID ETHYL ESTERS 1 GM CAPSULE PO SCH (08:58)
[2018-06-30 12:43] VITALS: BP 138/83
[2018-06-30] MEDS: cefTRIAXone 1,000 MG in SYRINGE 1 EACH IV SCH (13:01)
== END 2018-06-30 13:40 | disposition home health service (06) | DRG 607 ==
LOC: N.3E → N.5E 06-27 18:37
PROVIDERS: ADMIT Family Medicine; ATTEND Family Medicine

== ENCOUNTER 2019-10-31 14:13 | Observation (INO) ==
[2019-10-31] MEDS ORDERED: METOPROLOL TARTRATE 5 MG/5 ML VIAL IV STA (14:47)
[2019-10-31 15:42] LABS: Basophils % 0.3 % (0.0-0.8); Eosinophils % 0.3 % (0.00-10.9); Hematocrit 44.6 VOL% (42.0-52.0); Hemoglobin 14.9 GM/DL (14.0-18.0); Immature Granulocytes % 0.5 %; Immature Granulocytes Absolute 0.04 #; Lymphocytes # 1.2 10*3/uL (1.4-4.0); Lymphocytes % 15.3 % (21.2-54.2); Mean Corpuscular HGB Conc 33.4 GM/DL (32-36); Mean Platelet Volume 9.4 FL (9.6-12.0); Neutrophils % 72.6 % (38.7-73.9); Platelet Count 176 T/CUMM (130-400); Red Blood Count 4.55 MC/CUMM (3.8-5.5); White Blood Count 7.9 T/CUMM (4-12)
[2019-10-31 16:04] LABS: Albumin 3.6 G/DL (3.4-5.0); Bilirubin,Total 0.8 MG/DL (0.2-1.0); Calcium 9.2 MG/DL (8.5-10.1); Osmolality,Calculated 269.1 MOS/KG (273-304); Total Protein 7.7 G/DL (6.4-8.3)
[2019-10-31] MEDS ORDERED: ASPIRIN CHEW 81 MG TABLET PO STA (16:17)
[2019-10-31] MEDS ORDERED: FUROSEMIDE 40 MG/4 ML VIAL IV STA (16:44)
[2019-10-31 17:11] LABS: Apearance,Urine CLEAR (Clear); Bacteria,Urine Occasional /HPF (Few); Bilirubin,Urine Negative (Negative); Blood, Urine Small mg/dL (Negative); Glucose,Urine (UA) Negative (Negative); Hyaline Casts,Urine 16 /LPF (0-3); Ketones,Urine 20 mg/dL (Negative); Mucus,Urine Occasional /LPF (Occasional); Nitrite,Urine Negative (Negative); Protein,Urine 100 MG/DL; RBC,Urine 42 /HPF (0-4); Squamous Epithelial Cell,Urine Occasional /HPF (0-10); Urine Color Yellow (Yellow); Urine Specific Gravity 1.012 (1.001-1.035); Urine Urobilinogen < 2.0 EU/DL (0.2-1.0); WBC,Urine 2 /HPF (0-6)
[2019-10-31 17:39] LABS: Barbiturates Screen,Urine Negative (Negative); Benzodiazepines Screen,Urine Negative (Negative); Cannabinoid Screen,Urine Positive (Negative); Opiate Screen,Urine Negative (Negative); Phencyclidine Screen,Urine Negative (Negative)
[2019-10-31] MEDS ORDERED: hydrALAZINE 20 MG/1 ML VIAL IV STA (19:44)
[2019-10-31] MEDS ORDERED: FUROSEMIDE 40 MG/4 ML VIAL IV ONE (20:00)
[2019-10-31] MEDS: TAMSULOSIN 0.4 MG CAPSULE PO SCH (21:38)
[2019-10-31] MEDS: GABAPENTIN 300 MG CAPSULE PO SCH (21:38)
[2019-10-31] MEDS: OMEGA 3 ACID ETHYL ESTERS 1 GM CAPSULE PO SCH (21:38)
[2019-10-31] MEDS: HydrOXYzine PAMOATE 25 MG CAPSULE PO SCH (21:38)
[2019-11-01 05:55] LABS: Basophils % 0.3 % (0.0-0.8); Eosinophils # 0.1 10*3/uL (0.0-0.87); Eosinophils % 2.2 % (0.00-10.9); Hematocrit 42.9 VOL% (42.0-52.0); Hemoglobin 14.5 GM/DL (14.0-18.0); Immature Granulocytes % 0.5 %; Immature Granulocytes Absolute 0.03 #; Lymphocytes # 1.7 10*3/uL (1.4-4.0); Lymphocytes % 25.8 % (21.2-54.2); Mean Corpuscular HGB Conc 33.8 GM/DL (32-36); Mean Platelet Volume 9.8 FL (9.6-12.0); Monocytes % 14.7 % (1.7-12.7); Neutrophils % 56.5 % (38.7-73.9); Platelet Count 182 T/CUMM (130-400); Red Blood Count 4.47 MC/CUMM (3.8-5.5); Red Cell Distribution Width 14.3 % (9.3-17.3); White Blood Count 6.5 T/CUMM (4-12)
[2019-11-01 06:10] LABS: Bilirubin,Total 1.4 MG/DL (0.2-1.0); Calcium 8.7 MG/DL (8.5-10.1); Osmolality,Calculated 276.5 MOS/KG (273-304); Total Protein 6.6 G/DL (6.4-8.3)
[2019-11-01 06:24] LABS: Risk Ratio 3.07; VLDL CHOLESTEROL 16.6 MG/DL
[2019-11-01 07:13] LABS: Sedimentation Rate-Westergren 17 MM/HR (0-20)
[2019-11-01] MEDS: ASCORBIC ACID 500 MG TABLET PO SCH (09:10)
[2019-11-01] MEDS: CALCIUM (CARBONATE) 500 MG TABLET PO SCH (09:10)
[2019-11-01] MEDS: FERROUS SULFATE 325 MG TABLET PO SCH (09:10)
[2019-11-01] MEDS: LOSARTAN 50 MG TABLET PO SCH (09:10)
[2019-11-01] MEDS: OMEGA 3 ACID ETHYL ESTERS 1 GM CAPSULE PO SCH ×2 (09:10→21:29)
[2019-11-01] MEDS: CYANOCOBALAMIN 500 MCG TABLET PO SCH (09:10)
[2019-11-01] MEDS: CHOLECALCIFEROL 1,000 UNIT TABLET PO SCH (09:10)
[2019-11-01] MEDS: PANTOPRAZOLE 40 MG TABLET PO SCH (09:10)
[2019-11-01] MEDS ORDERED: POTASSIUM CHLORIDE 20 MEQ TABLET PO ONE (12:00)
[2019-11-01] MEDS: HydrOXYzine PAMOATE 25 MG CAPSULE PO SCH (21:28)
[2019-11-01] MEDS: TAMSULOSIN 0.4 MG CAPSULE PO SCH (21:28)
[2019-11-01] MEDS: GABAPENTIN 300 MG CAPSULE PO SCH (21:29)
[2019-11-02 06:07] LABS: Basophils % 0.4 % (0.0-0.8); Eosinophils # 0.2 10*3/uL (0.0-0.87); Eosinophils % 2.5 % (0.00-10.9); Hematocrit 42.5 VOL% (42.0-52.0); Hemoglobin 14.2 GM/DL (14.0-18.0); Immature Granulocytes % 0.1 %; Immature Granulocytes Absolute 0.01 #; Lymphocytes # 1.7 10*3/uL (1.4-4.0); Mean Corpuscular HGB Conc 33.4 GM/DL (32-36); Mean Corpuscular Volume 97.3 FL (87-102); Mean Platelet Volume 9.7 FL (9.6-12.0); Monocytes % 12.7 % (1.7-12.7); Neutrophils % 59.3 % (38.7-73.9); Platelet Count 185 T/CUMM (130-400); Red Blood Count 4.37 MC/CUMM (3.8-5.5); Red Cell Distribution Width 14.3 % (9.3-17.3); White Blood Count 6.7 T/CUMM (4-12)
[2019-11-02 06:42] LABS: Albumin 2.9 G/DL (3.4-5.0); Bilirubin,Total 0.7 MG/DL (0.2-1.0); Calcium 8.8 MG/DL (8.5-10.1); Osmolality,Calculated 274.8 MOS/KG (273-304); Total Protein 6.6 G/DL (6.4-8.3)
[2019-11-02 07:23] LABS: Sedimentation Rate-Westergren 12 MM/HR (0-20)
[2019-11-02] MEDS ORDERED: FUROSEMIDE 40 MG/4 ML VIAL IV SCH (08:00)
[2019-11-02] MEDS: ASCORBIC ACID 500 MG TABLET PO SCH (08:18)
[2019-11-02] MEDS: CALCIUM (CARBONATE) 500 MG TABLET PO SCH (08:18)
[2019-11-02] MEDS: FERROUS SULFATE 325 MG TABLET PO SCH (08:18)
[2019-11-02] MEDS: CHOLECALCIFEROL 1,000 UNIT TABLET PO SCH (08:18)
[2019-11-02] MEDS: CYANOCOBALAMIN 500 MCG TABLET PO SCH (08:18)
[2019-11-02] MEDS: PANTOPRAZOLE 40 MG TABLET PO SCH (08:18)
[2019-11-02] MEDS: LOSARTAN 50 MG TABLET PO SCH (08:18)
[2019-11-02] MEDS: OMEGA 3 ACID ETHYL ESTERS 1 GM CAPSULE PO SCH (08:18)
[2019-11-02] MEDS ORDERED: amLODIPine 10 MG TABLET PO SCH (09:00)
[2019-11-02 09:27] VITALS: BP 155/93
== END 2019-11-02 14:04 | disposition home health service (06) ==
LOC: N.EDINP 14:13 → N.ED 14:13 → SUPCPDRO 17:42 → SUATTDRO 17:42 → N.2E 18:15
PROVIDERS: ADMIT Family Medicine; ATTEND Internal Medicine